=== PATIENT | male | born 1960 | race Caucasian/White ===

== ENCOUNTER 2021-06-30 09:43 | Emergency (ER) | payer OTHER ==
[~2021-06-30] VITALS: Ht 182.9 cm; Wt 95.3 kg
--- NOTE | ~2021-06-30 | EMS ---
[address] [address] EMS Patient Care Report Name: ASHLEY JOY Room #: REG SHAYLEE Mckeon#: [id number] Admission: 06/30/21 Attend Phys: Discharge: Date of : 62 Report #: [id number] THIS REPORT FOR: //name// Report Transmitted: 06/30/2021 10:15 EMS Care Summary [place], [place]/[facility] Incident [id number] @ 06/30/2021 08:55 Incident Location [address] [place] [id number] Patient ASHLEY JOY Male, 61 Years 1960 Patient Address [address] [place] [address] Patient History Hypertension (HTN),Hyperlipidemia, Patient Allergies No known allergies, Patient Medications Atorvastatin, Losartan, Chief Complaint left leg pain Disposition Transported No Lights/[place] Dispatch Reason Back Pain (Non-Traumatic) Transported To [facility] Narrative M36 dispatched on a back pain. M36 arrived to home to find family directing EMS to a bedroom in home. PT found kneeling next to bed. PT stated left leg pain as chief complaint. PT stated pain starts at hip and shoots down leg. PT described pain as constant. PT stated he tried to get out of bed and ended up kneeling [address] [address] EMS Patient Care Report Name: ASHLEY JOY Room #: REG ER Linda#: [id number] Admission: 06/30/21 Attend Phys: Discharge: Date of : 62 Report #: [id number] next to the bed in position of comfort. PT assisted to sit on stairchair. PT rolled and carried out of home. PT assisted to scoot to stretcher. PT secured with seatbelts. PT vitals monitored during transport. PT report given. PT moved to hospital bed via three person sheet lift. PT care and belongings transferred to ER staff at [facility] without incident. M36 placed back in service. Initial Vitals @09:32P: 92,R: 16,BP: 206/86,Pain: 10/10,GCS: 15,SpO2: 96,Revised Trauma: 12, @09:25P: 88,R: 18,BP: 214/76,Pain: 10/10,GCS: 15,CO: 0,SpO2: 98,Revised Trauma: 12, Assessments @09:31MENTAL:Person Oriented,Place Oriented,Event Oriented,Time Oriented,SKIN:HEENT:LUNG SOUNDS:General: Nausea,ABDOMEN:General: Nausea,PELVIS//GI:EXTREMITIES:Left Leg: Abnormal Sensation,Left Arm: Abnormal Sensation,Left Leg: Weakness,PULSE:Radial: 3+ Bounding,NEURO:Abnormal Gait, Impression Back Pain Procedures @09:10 ALS Assessment Timeline 08:52,Call Received 08:52,Dispatch Notified 08:55,Dispatched 08:56,En Route 09:07,On Scene 09:09,At Patient 09:10,ALS Assessment, 09:25,BP: 214/76 M,PULSE: 88,RR: 18 R,SPO2: 98 Ox,ETCO2: ,BG: ,PAIN: 10,GCS: 15, 09:28,Depart Scene 09:32,BP: 206/86 M,PULSE: 92,RR: 16 R,SPO2: 96 Ox,ETCO2: ,BG: ,PAIN: 10,GCS: 15, 09:39,At Destination 09:55,Call Closed Disclaimer [email or web address] Copyright 2021 [employer] This EMS Care Summary contains data elements from the applicable legal record (which may be displayed differently). It is designed to provide pertinent [facility] [address] [place] [address] EMS Patient Care Report Name: ASHLEY JOY Room #: REG ER Linda#: [id number] Admission: 06/30/21 Attend Phys: Discharge: Date of : 62 Report #: [id number] information for the following purposes: continuity of care, clinical quality, and state data reporting. The complete legal record is available to ED staff and administrators of the receiving hospital in [employer]'s Patient Tracker. All data is provided "as is."
[2021-06-30] MEDS ORDERED: COZAAR 25 MG TA25 M2 PO (09:52)
[2021-06-30] MEDS ORDERED: LIPITOR10 MG PO (09:53)
[2021-06-30] MEDS ORDERED: FLEXERIL PO (12:49)
[2021-06-30] MEDS ORDERED: MELOXICAM15 MG PO (12:49)
[2021-06-30] MEDS ORDERED: NORCO5 PO (12:49)
[2021-06-30 13:01] VITALS: BP 162/64
== END 2021-06-30 13:03 | disposition home or self-care (01) ==
LOC: ER 09:43
DX: M54.32 Sciatica, left side (principal); I10 Essential (primary) hypertension; E78.5 Hyperlipidemia, unspecified